=== PATIENT | female | born 1970 | race Caucasian/White ===

== ENCOUNTER 2024-06-18 10:49 | Outpatient (CLI) | payer MEDICAID | END 2024-06-18 23:59 | disposition home or self-care (01) | LOC: RAD 10:49 | PROVIDERS: ATTEND Surgery | DX: M25.462 Effusion, left knee (principal); M25.562 Pain in left knee; M25.862 Other specified joint disorders, left knee | CPT/HCPCS: 76881 ==

== ENCOUNTER 2024-09-16 13:20 | Outpatient (CLI) | payer MEDICAID ==
--- NOTE | 2024-09-16 15:32 | RADIOLOGY REPORT ---
CLINICAL HISTORY: LEFT KNEE PAIN. Abnormal ultrasound. Cystic structure in the left posterior knee. COMPARISON: Correlation made to ultrasound dated 06/18/2024. TECHNIQUE: Multisequence multiplanar MRI images of the left knee were obtained without contrast. FINDINGS: Cruciate ligaments: ACL and PCL are intact. Extensor mechanism: Moderate tendinosis of the patellar tendon, with thickened tendon throughout its course. There is mild artifact adjacent to the patellar tendon, may be sequela of prior postsurgical changes or other intervention. Distal quadriceps mechanism is intact and otherwise unremarkable. Mild edema and small amount of fluid in the prepatellar and superficial infrapatellar bursae. Collateral ligaments: Medial and lateral collateral ligaments are intact and otherwise unremarkable. Menisci: No significant degeneration. No evidence of meniscal tear. Cartilage: Large areas of full-thickness chondral loss in the lateral patellar facet and extending to the median ridge and lateral trochlea extending to the central trochlea with associated subchondral cystic change. Chondral thinning in the medial and lateral compartments. Bones: No acute fracture or focal marrow contusion. Severe arthritic changes of the patellofemoral co mpartment with severe joint space narrowing and subchondral sclerosis. Joint fluid: Moderate to large joint effusion. Other: Popliteal cyst measures up to 2.4 x 2.1 x 4.3 cm. IMPRESSION: 1. Popliteal cyst. 2. Moderate to large joint effusion. 3. 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 4. Patellar tendinosis and mild prepatellar and superficial infrapatellar bursitis. Artifact along th e anterior aspect of the patellar tendon, may be sequela of prior postsurgical changes or other inter vention. 5. Additional findings as described above.
== END 2024-09-16 23:59 | disposition home or self-care (01) ==
LOC: MRI02 13:20
PROVIDERS: ATTEND Orthopaedic Surgery
DX: M17.12 Unilateral primary osteoarthritis, left knee (principal); M25.562 Pain in left knee; M25.462 Effusion, left knee; M71.22 Synovial cyst of popliteal space [Baker], left knee
CPT/HCPCS: 73721